=== PATIENT | female | born 1970 | race Caucasian/White ===

== ENCOUNTER 2016-11-21 12:12 | Emergency (ER) | payer MEDICAID ==
[2016-11-21 12:19] VITALS: RESP 16
[2016-11-21] MEDS ORDERED: NS 1,000 ML IV ONE (12:55)
[2016-11-21] MEDS ORDERED: ONDANSETRON 4 MG/2 ML VIAL IVP ONE ×2 (12:55→16:23)
--- NOTE | 2016-11-21 13:00 | EDPHY ---
H & P Stated Complaint: pt c/o fatigue . lymph node pain and swelling. st. - Personal History LMP (Females 10-55): IUD In Place Current Tetanus/Diphtheria Vaccine: Unsure Current Tetanus Diphtheria and Acellular Pertussis (TDAP): Unsure - Medical/Surgical History Hx Asthma: No Hx Chronic Respiratory Disease: No Hx Diabetes: No Hx Cardiac Disease: No Hx Renal Disease: No Hx Cirrhosis: No Hx Alcoholism: No Hx HIV/AIDS: No Hx Splenectomy or Spleen Trauma: No Other PMH: auto immune hepatitis /on transplant list - Social History Smoking Status: Never smoked Time Seen by Provider: 11/21/16 12:27 HPI/ROS: CHIEF COMPLAINT: "I think I have a peritonsillar abscess" HISTORY OF PRESENT ILLNESS: 46-year-old female past medical history significant for Sjogren syndrome, thrombocytopenia, autoimmune hepatitis, lupus , complaining of 10 days of sore throat, hoarse voice, seen at [facility] yesterday for same complaints had chest x-ray negative for pneumonia, discharged. This morning noticed a black area on her right tonsil concerning for peritonsillar abscess and came to the [facility] ER. Denies acute change in voice. Denies nuchal rigidity. Denies fever chills. Denies nausea or vomiting. Denies cough. Denies chest pain. Denies back pain. REVIEW OF SYSTEMS: A ten point review of systems was performed and is negative with the exception of the items mentioned in the HPI PAST MEDICAL & SURGICAL HISTORY: Sjogren syndrome. Thrombocytopenia. Autoimmune hepatitis. Lupus. Currently on transplant list [facility]. Not currently on immune suppressants. SOCIAL HISTORY: Nonsmoker PHYSICAL EXAM (Prior to examination, patient consented to physical exam, hands were washed and my usual and customary physical exam procedures followed) 1) GENERAL: Well-developed, well-nourished, alert and oriented. Appears uncomfortable . 2) HEAD: Normocephalic, atraumatic 3) HEENT: Pupils equal, round, reactive to light bilaterally. Sclera anicteric. Nasopharynx clear. Oropharynx: No trismus no drooling. Bilateral tonsils are enlarged, they are symmetrical. There is a black appearance and a crypt to the right tonsil. Ears bilaterally with normal tympanic membranes. 4) NECK: Full range of motion, no meningeal signs. 5) LUNGS: Clear auscultation bilaterally, no wheezes, no rhonchi, no retractions. 6) HEART: Regular rate and rhythm, no murmur, no heave, no gallop. 7) ABDOMEN: No guarding, no rebound, no focal tenderness, 8) MUSCULOSKELETAL: No peripheral edema or discoloration. 9) BACK: No CVA tenderness. 10) SKIN: no petechiae. DIFFERENTIAL DIAGNOSIS: in no particular order including but not limited to retropharyngeal abscess, peritonsillar abscess, strep pharyngitis, mononucleosis (Charles Turner) Constitutional: Initial Vital Signs Temperature (C) 36.8 C 11/21/16 12:17 Heart Rate 88 11/21/16 12:17 Respiratory Rate 16 11/21/16 12:17 Blood Pressure 108/68 11/21/16 12:17 O2 Sat (%) 96 11/21/16 12:17 O2 Delivery Mode Room Air O2 (L/minute) 5 Allergies/Adverse Reactions: codeine Allergy (Verified 11/21/16 12:20) Home Medications: Medication Instructions Recorded Acyclovir 400 mg PO 05/27/13 Budesonide, Micronized [Budesonide] 5 gm MC 05/27/13 CEVIMELINE HCL [EVOXAC] 30 mg PO 05/27/13 Hydroxychloroquine Sulfate 200 mg PO 05/27/13 [Plaquenil] LEVOTHYROXINE SODIUM [Levoxyl 137 225 mcg PO 05/27/13 mcg] Mycophenolate Mofetil [Cellcept 250 mg PO BID 05/27/13 250 mg (RX)] Nadolol [Nadolol 20 mg (RX)] 20 mg PO DAILY 05/27/13 HYDROmorphone HCL [Dilaudid 2 mg 1 - 2 mg PO Q4-6PRN PRN #10 tab 05/28/13 (RX)] Amoxicillin/Clavulanate Pot 875 mg PO BID #14 tab 11/21/16 [Augmentin 875 mg tab] HYDROmorphone HCL [Dilaudid 2 mg 2 mg PO Q6 PRN #15 tab 11/21/16 (RX)] Lidocaine 2% Viscous 15 ml MM TID #100 ml 11/21/16 Ondansetron Odt [Zofran Odt] 4 mg PO Q4PRN PRN #15 tab 11/21/16 methylPREDNISolone [Medrol Dose 4 mg PO DAILY #1 ea 11/21/16 Tj] Medical Decision Making - Diagnostics Imaging: CT Scan of the Neck With Contrast Clinical Indications: Sore throat for 10 days in a 46-year-old female with a history of Sjogren's syndrome and lupus with abnormal appearance of the right tonsil on physical examination; assess for abscess. Technique: During machine power IV injection of 90 mL of Isovue-300, multidetector helical CT imaging was performed from the skull base to the upper thoracic inlet. Dose reduction techniques were utilized. Findings: In the region of the right tonsillar fossa there is a 2 x 1 cm abnormal fluid collection. This contains several air bubbles in the appearance is consistent with peritonsillar abscess. There is mild compression on the adjacent airway on the right side. There is no associated osseous abnormality is seen. No significantly enlarged lymph nodes are seen. Vascular structures appear normal. There is reversal of the normal spinal cervical curvature suggesting muscle spasm. Cervical spinal degenerative changes are also noted. Impression: 1. Right peritonsillar abscess with mild compression on the adjacent airway. 2. See above report for additional findings. Results called and discussed with Alfonzo Turner at 11/21/2016 15:43 Dictated By: Ramin Lazaro MD Images reviewed by myself (Charles Turner) ED Course/Re-evaluation: 1:00 p.m.: Discussed case with Dr. Michael Collier in the ER. Reviewed old medical records from [facility] with. Will obtain laboratory studies, imaging. 2:30 p.m.: I reviewed the patient's laboratory studies from today showing H&H of 8.5/27.9 with platelet count of 49. I reviewed the patient's [facility] CBC dated 10/13/2016 showing H&H of 9.8/31.8 platelet count 112. I have discussed this with the patient she notes that she is already being evaluated for thrombocytopenia, anemia at [facility]. 3:50 p.m.: Phone consultation with Dr. Nicole Arroyo ENT recommended starting patient on Augmentin. Patient given dose of IV Decadron in the ER. Discharged with Solu-Medrol. Given the small size of the peritonsillar abscess and her thrombocytopenia, platelet count 45, I do not think that the benefits of emergent incision and drainage outweigh the risks. Dr. Nicole Arroyo agrees with this. Patient's airway is patent at this time. She has no trismus or drooling. I think she can be discharged. The patient feels comfortable with this plan. She will see Dr. Nicole Arroyo tomorrow. (Charles Turner) I did not see this patient while she was in the emergency department. However her care was discussed with the PA while the patient was in the department. I agree with treatment plan and management (Michael Collier) - Data Points Laboratory Results: Laboratory Results 11/21/16 13:25 11/21/16 13:25 11/21/16 Unknown Group A Strep DNA NEGATIVE (NEGATIVE) Medications Given: Discontinued Medications Amoxicillin/Clavulanate Potassium (Augmentin 875mg) 875 mg PO EDNOW ONE PRN Reason: Protocol Stop: 11/21/16 15:53 Last Admin: 11/21/16 16:12 Dose: 875 mg Dexamethasone (Decadron Injection) 10 mg IVP EDNOW ONE Stop: 11/21/16 15:44 Last Admin: 11/21/16 16:13 Dose: 10 mg Fentanyl (Sublimaze) 100 mcg IVP EDNOW ONE Stop: 11/21/16 14:29 Last Admin: 11/21/16 14:40 Dose: 100 mcg Fentanyl (Sublimaze) 50 mcg IVP EDNOW ONE Stop: 11/21/16 16:24 Last Admin: 11/21/16 16:32 Dose: 50 mcg Sodium Chloride (Ns) 1,000 mls @ 0 mls/hr IV ONCE ONE PRN Reason: Wide Open Stop: 11/21/16 12:56 Last Admin: 11/21/16 13:25 Dose: 1,000 mls Morphine Sulfate (Morphine) 4 mg IVP EDNOW ONE Stop: 11/21/16 12:56 Last Admin: 11/21/16 13:30 Dose: 4 mg Ondansetron HCl (Zofran) 4 mg IVP EDNOW ONE Stop: 11/21/16 12:56 Last Admin: 11/21/16 13:30 Dose: 4 mg Ondansetron HCl (Zofran) 4 mg IVP EDNOW ONE Stop: 11/21/16 16:24 Last Admin: 11/21/16 16:32 Dose: 4 mg Departure - Departure Disposition: Home, Routine, Self-Care Clinical Impression: Right peritonsillar abscess Condition: Good Instructions: Peritonsillar Abscess (ED) Additional Instructions: Return to the ER immediately if you cannot swallow, have drooling, fevers, neck stiffness, cannot open your jaw, or any other symptoms that concern you. Referrals: Nicole Arroyo MD [Medical Doctor] - 1 day without fail (Dr. Nicole Arroyo is an ear nose throat doctor) Prescriptions: Amoxicillin/Clavulanate Pot [Augmentin 875 mg tab] 875 mg PO BID #14 tab HYDROmorphone HCL [Dilaudid 2 mg (RX)] 2 mg PO Q6 PRN #15 tab PRN Reason: Pain, Severe Lidocaine 2% Viscous 15 ml MM TID #100 ml methylPREDNISolone [Medrol Dose Tj] 4 mg PO DAILY #1 ea Ondansetron Odt [Zofran Odt] 4 mg PO Q4PRN PRN #15 tab PRN Reason: Nausea
[2016-11-21] MEDS ORDERED: IOPAMIDOL (ISOVUE-300) 100 ML BTL IV ONE (13:21)
[2016-11-21 13:47] LABS: % IMMATURE GRANULYOCYTES 0.4 % (0.0-1.1); ABSOLUTE IMMATURE GRANULOCYTES 0.01 10^3/uL (0.00-0.10); ADD DIFF? NO; ADD MORPH? NO; ADD SCAN? YES; FRAGMENT RBC FLAG 0 (0-99); HEMATOCRIT 27.9 % (38.0-47.0); HEMOGLOBIN 8.5 g/dL (12.6-16.3); LEFT SHIFT FLG 40 (0-99); LIPEMIA HEMOLYSIS FLAG 80 (0-99); MEAN CELL HEMOGLOBIN 22.7 pg (27.9-34.1); MEAN CELL HEMOGLOBIN CONCENTR. 30.5 g/dL (32.4-36.7); MEAN CELL VOLUME 74.6 fL (81.5-99.8); MEAN PLATELET VOLUME 10.4 fL (8.7-11.7); PLATELET CLUMPS FLAG 10 (0-99); RED BLOOD CELL COUNT 3.74 10^6/uL (4.18-5.33); RED CELL DISTRIBUTION WIDTH 16.5 % (11.5-15.2)
[2016-11-21 13:48] LABS: ATYPICAL LYMPHOCYTE FLAG 250 (0-99); PLATELET COUNT 49 10^3/uL (150-400)
[2016-11-21 14:07] LABS: SCAN POSITIVE
[2016-11-21 14:13] LABS: HYPOCHROMIA 1+; MICROCYTES 2+; PLATELET ESTIMATE DECREASED (ADEQ); POLYCHROMASIA 1+
[2016-11-21 14:14] LABS: ELLIPTOCYTES 1+; LARGE PLATELETS PRESENT
[2016-11-21] MEDS ORDERED: fentaNYL 100 MCG/2 ML INJ IVP ONE ×2 (14:28→16:23)
[2016-11-21 14:41] LABS: ANION GAP 10 mEq/L (8-16); CALCIUM 8.2 mg/dL (8.5-10.4); CARBON DIOXIDE 21 mEq/l (22-31); CHLORIDE 105 mEq/L (97-110); CREATININE 0.8 mg/dL (0.6-1.0); GLOMERULAR FILTRATION RATE > 60; GLUCOSE 127 mg/dL (70-100); POTASSIUM 3.6 mEq/L (3.5-5.2); SODIUM 136 mEq/L (134-144)
[2016-11-21] MEDS ORDERED: DEXAMETHASONE 10 MG/ML VIAL IVP ONE (15:43)
[2016-11-21] MEDS ORDERED: AMOXICILLIN/CLAVULANATE POT 875/125 MG TAB PO ONE (15:52)
[2016-11-21] MEDS ORDERED: fentaNYL 100 MCG/2 ML INJ ONE (16:24)
[2016-11-21 18:48] VITALS: BP 99/59; PULSE 85; TEMP 98.1; O2SAT 95
== END 2016-11-21 18:48 | disposition home or self-care (01) ==
DX: J36 Peritonsillar abscess (principal)
CPT/HCPCS: 96374; J2405; J3010; Q9967

== ENCOUNTER 2017-02-14 10:13 | Emergency (ER) | payer MEDICAID ==
[2017-02-14 10:31] VITALS: RESP 16; TEMP 97.7; O2SAT 98
--- NOTE | 2017-02-14 11:44 | EDPHY ---
H & P Stated Complaint: fell on hand tripping going up stairs. - Personal History LMP (Females 10-55): IUD [address] Current Tetanus/Diphtheria Vaccine: Yes Current Tetanus Diphtheria and Acellular Pertussis (TDAP): Yes - Medical/Surgical History Hx Asthma: No Hx Chronic Respiratory Disease: No Hx Diabetes: No Hx Cardiac Disease: No Hx Renal Disease: No Hx Cirrhosis: No Hx Alcoholism: No Hx HIV/AIDS: No Hx Splenectomy or Spleen Trauma: No Other PMH: auto immune hepatitis /on transplant list, lupus, factor 5, - Social History Smoking Status: Never smoked Time Seen by Provider: 02/14/17 10:57 HPI/ROS: Chief complaint: Hand injury History of present illness: 46-year-old female presents to the emergency department for hand injury. Patient tripped and fell striking her hand against the ground. Since then she has had pain and swelling over the top of her hand. Pain is worse with movement. Denies other associated signs or symptoms including no open wounds, no abnormal coolness or paresthesias in the hand. ( Ramin Freeman) - Physical Exam Exam: General: Alert, nontoxic Skin: Contusion over the dorsum of the right hand. No open wounds. Musculoskeletal: Diffuse tenderness over the dorsum of the right hand. The digits are nontender. The wrist including the snuffbox is nontender. She is moving the digits and wrist well. Vascular: Radial pulses 2+. Capillary refill brisk in the right hand. Neurologic: Sensation intact in the right hand. (Ramin Freeman) Constitutional: Initial Vital Signs Temperature (C) 36.5 C 02/14/17 10:28 Heart Rate 101 H 02/14/17 10:28 Respiratory Rate 16 02/14/17 10:28 Blood Pressure 112/63 02/14/17 10:28 O2 Sat (%) 98 02/14/17 10:28 O2 Delivery Mode Room Air Allergies/Adverse Reactions: codeine Allergy (Verified 11/21/16 12:20) Home Medications: Medication Instructions Recorded Acyclovir 400 mg PO 05/27/13 Budesonide, Micronized [Budesonide] 5 gm MC 05/27/13 CEVIMELINE HCL [EVOXAC] 30 mg PO 05/27/13 Hydroxychloroquine Sulfate 200 mg PO 05/27/13 [Plaquenil] LEVOTHYROXINE SODIUM [Levoxyl 137 225 mcg PO 05/27/13 mcg] Mycophenolate Mofetil [Cellcept 250 mg PO BID 05/27/13 250 mg (RX)] Nadolol [Nadolol 20 mg (RX)] 20 mg PO DAILY 05/27/13 HYDROmorphone HCL [Dilaudid 2 mg 1 - 2 mg PO Q4-6PRN PRN #10 tab 05/28/13 (RX)] Amoxicillin/Clavulanate Pot 875 mg PO BID #14 tab 11/21/16 [Augmentin 875 mg tab] HYDROmorphone HCL [Dilaudid 2 mg 2 mg PO Q6 PRN #15 tab 11/21/16 (RX)] Lidocaine 2% Viscous 15 ml MM TID #100 ml 11/21/16 Ondansetron Odt [Zofran Odt] 4 mg PO Q4PRN PRN #15 tab 11/21/16 methylPREDNISolone [Medrol Dose 4 mg PO DAILY #1 ea 11/21/16 Tj] Medical Decision Making - Diagnostics Imaging: I viewed and interpreted images myself Procedures: Procedure: Splint placement. A volar splint was applied. After application of the splint I returned and re- examined the patient. The splint was adequately immobilizing the joint and distal to the splint the patient's circulation and sensation was intact. (Ramin Freeman) ED Course/Re-evaluation: Patient seen under the supervision of my secondary supervising physician Dr. Montse Albrecht. Patient presents to the emergency department for right hand injury. The hand is neurovascularly intact. X-ray negative. By history and physical exam no evidence of further trauma. She is splinted for comfort. Home care is discussed. She is asked to follow up with her doctor or hand doctor for recheck. Return precautions are given. Patient voiced understanding and agreement with plan. (Ramin Freeman) Differential Diagnosis: Included but not limited to contusion, sprain or strain, bony fracture (Ramin Freeman) Other Provider: This patient was primarily cared by the physician assistant operator. I have reviewed the chart and agree with the plan of care. I am the secondary supervising physician. (Montse Albrecht) Departure - Departure Disposition: Home, Routine, Self-Care Clinical Impression: Contusion, hand Condition: Good Instructions: Contusion in Adults (ED) Additional Instructions: Follow-up with her primary care doctor or hand doctor this week for recheck Ice the injury, 20 minutes on, 3 times daily for the next 2-3 days Ibuprofen as needed for pain If symptoms worsen or new symptoms develop return to the emergency room for recheck Referrals: Lindy Hernandez MD [Primary Care Provider] - As per Instructions Roshan Killian MD [Medical Doctor] - As per Instructions
[2017-02-14 12:19] VITALS: BP 135/86; PULSE 78
== END 2017-02-14 12:20 | disposition home or self-care (01) ==
DX: S60.221A Contusion of right hand, initial encounter (principal); W01.198A Fall on same level from slipping, tripping and stumbling with subsequent striking against other object, initial encounter

== ENCOUNTER 2018-12-23 23:00 | Inpatient (IN) | payer MEDICAID ==
[2018-12-23] MEDS ORDERED: NS 1,000 ML IV ONE ×2 (23:25→23:47)
--- NOTE | 2018-12-23 23:25 | EDPHY ---
H & P Stated Complaint: body aches, and abd pain since 1200 ascites Time Seen by Provider: 12/23/18 23:25 HPI/ROS: HPI CHIEF COMPLAINT: Fever and abdominal pain. HISTORY OF PRESENT ILLNESS: Patient is a 48-year-old female, she presents emergency room with fever, abdominal pain. She has a history of autoimmune hepatitis, Sjogren's, vitiligo, and also has ascites, she presents emergency room with abdominal pain and fever. She has nausea but no vomiting. Denies chest pain or shortness of breath. Does have a cough. Complains of muscle aches. MELD SCORE 24 Past Medical History: Autoimmune hepatitis, Sjogren's disease, vitiligo Past Surgical History: Denies recent surgery Social History: Denies drugs alcohol tobacco Family History: Noncontributory Patient is followed by [facility]. She is on the transplant list. ROS REVIEW OF SYSTEMS: 10 Systems were reviewed and negative with the exception of the elements mentioned in the history of present illness. Exam Constitutional triage nursing summary reviewed, vital signs reviewed, awake/ alert. Eyes icteric sclera EOMI, PERRLA. HENT normal inspection, atraumatic, moist mucus membranes, no epistaxis, neck supple/ no meningismus, no raccoon eyes. Respiratory clear to auscultation bilaterally, normal breath sounds, no respiratory distress, no wheezing. Cardiovascular rate normal, regular rhythm, no murmur, no edema, distal pulses normal. Gastrointestinal abdomen is soft however tender diffusely, fluid wave positive. No significant distention. Genitourinary no CVA tenderness. Musculoskeletal no midline vertebral tenderness, full range of motion, no calf swelling, no tenderness of extremities, no meningismus, good pulses, neurovascularly intact. Skin pink, warm, & dry, no rash, skin atraumatic. Neurologic awake, alert and oriented x 3, AAOx3, moves all 4 extremities equally, motor intact, sensory intact, CN II-XII intact, normal cerebellar, normal vision, normal speech. Psychiatric normal mood/affect. Heme/Lymph/Immune no lymphadenopathy. Differential Diagnosis: Differential diagnosis includes but is not limited to and in no particular order: Bowel obstruction, appendicitis, gallbladder disease, diverticulitis, colitis, enteritis, perforated viscus, gastritis, GERD , esophagitis, urinary tract infection, pyelonephritis, kidney stones Medical Decision Making: Plan for this patient IV establishment IV fluid bolus , IV pain medicine Dilaudid 0.5 mg for pain control, IV Zofran 4 mg for nausea, Rocephin, blood cultures, lactic acid, basic labs. Re-evaluate. Re-evaluation: 12:11 a.m. patient here with fever, abdominal pain and ascites on exam. Icteric eyes. Labs have been reviewed she does have an elevated white blood cell count. Additionally low platelets, elevated LFTs, bilirubin is close to 8. Is concerning on exam that she may have SBP. IV Rocephin has been given. Blood cultures pulled. Lactic acid was initially elevated at 5.1. I do not believe this is a marker of septic shock as she does not appear to be in shock however this is more of a marker due to underlying liver disease. She is getting IV fluids. Will repeat lactic. 1227AM: Spoke with [facility] Dr. Sigala on-call for the liver team discussed case in detail. She is fine with us keeping her here. She does not recommend transfer [facility] this time MELD Score (Model For End-Stage Liver Disease) (12 and older) from [email or web address] on 12/24/2018 All calculations should be rechecked by clinician prior to use RESULT SUMMARY: 24 points MELD Score (2016)* 19.6% Estimated 3-Month Mortality INPUTS: Dialysis at least twice in the past week > 0 = No Creatinine > 0.7 mg/dL Bilirubin > 8.0 mg/dL INR > 1.91 Sodium > 134 mEq/L 1233: Updated patient she does not prefer to be transferred and prefers to be here. Spoke with Dr. Rios, Agrees to admit. Patient agrees to admit here, would prefer here then being transferred. [facility] consulted and agrees for her to stay here Dr. Sigala. Source: Patient - Personal History LMP (Females 10-55): IUD In Place Current Tetanus/Diphtheria Vaccine: No Current Tetanus Diphtheria and Acellular Pertussis (TDAP): No - Medical/Surgical History Hx Asthma: No Hx Chronic Respiratory Disease: No Hx Diabetes: No Hx Cardiac Disease: No Hx Renal Disease: No Hx Cirrhosis: Yes Hx Alcoholism: No Hx HIV/AIDS: No Hx Splenectomy or Spleen Trauma: No Other PMH: raynaud's, auto immune hepatitis /on transplant list, lupus, factor 5 , ascites, hypothyriodism, - Social History Smoking Status: Never smoked Constitutional: Initial Vital Signs Temperature (C) 37.1 C 12/23/18 23:05 Heart Rate 123 H 12/23/18 23:05 Respiratory Rate 16 12/23/18 23:05 Blood Pressure 110/61 12/23/18 23:05 O2 Sat (%) 96 12/23/18 23:05 O2 Delivery Mode Room Air Allergies/Adverse Reactions: codeine Allergy (Verified 12/23/18 23:08) narcotics Allergy (Uncoded 12/23/18 23:09) Home Medications: Medication Instructions Recorded Acyclovir [Zovirax 200 mg (*)] 200 mg PO BID 12/24/18 Cevimeline HCl [Evoxac] 30 mg PO TID PRN 12/24/18 Cholecalciferol Vit D3 [Vitamin D3 2,000 units PO DAILY 12/24/18 (*)] Ciprofloxacin HCl [Ciprofloxacin] 500 mg PO DAILY PRN 12/24/18 Furosemide [Lasix 40 MG (*)] 40 mg PO BID@,12/24/18 Herbals/Supplements -Info Only 1 ea PO DAILY 12/24/18 Levothyroxine [Synthroid 200 mcg 200 mcg PO DAILY06 12/24/18 (*)] Lisdexamfetamine Dimesylate 70 mg PO DAILY 12/24/18 [Vyvanse] Spironolactone [Aldactone 50 MG 100 mg PO BID@,12/24/18 (RX)] Medical Decision Making - Diagnostics Imaging Results: Imaging Impressions Chest X-Ray 12/23/18 23:34 Impression: Normal chest x-ray. - Data Points Laboratory Results: Laboratory Results 12/23/18 23:31 12/23/18 23:31 Medications Given: Acetaminophen (Tylenol) 650 mg PO Q4HRS PRN PRN Reason: Pain, Mild/Fever, Can Take PO Stop: 06/22/19 00:39 Last Admin: 12/24/18 19:22 Dose: 650 mg Hydromorphone HCl (Dilaudid) 0.5 mg IVP Q4HRS PRN PRN Reason: Severe pain Stop: 01/03/19 02:12 Last Admin: 12/24/18 19:58 Dose: 0.5 mg Discontinued Medications Hydromorphone HCl (Dilaudid) 0.5 mg IVP EDNOW ONE Stop: 12/23/18 23:33 Last Admin: 12/23/18 23:46 Dose: 0.5 mg Sodium Chloride (Ns) 1,000 mls @ 0 mls/hr IV EDNOW ONE; Wide Open PRN Reason: Protocol Stop: 12/23/18 23:26 Last Admin: 12/23/18 23:42 Dose: 1,000 mls Ceftriaxone Sodium 2 gm/ (Sodium Chloride) 50 mls @ 100 mls/hr IV EDNOW ONE PRN Reason: Protocol Stop: 12/24/18 00:03 Last Admin: 12/24/18 00:15 Dose: 50 mls Sodium Chloride (Ns) 1,000 mls @ 0 mls/hr IV ONCE ONE PRN Reason: Wide Open Stop: 12/23/18 23:48 Last Admin: 12/23/18 23:48 Dose: 1,000 mls Phytonadione 10 mg/ Sodium (Chloride) 51 mls @ 204 mls/hr IV ONCE ONE Stop: 12/24/18 00:58 Last Admin: 12/24/18 01:09 Dose: 51 mls Sodium Chloride (Ns) 500 mls @ 0 mls/hr IV ONCE ONE PRN Reason: Wide Open Stop: 12/24/18 02:15 Last Admin: 12/24/18 02:37 Dose: 500 mls Albumin Human (Flexbumin 25 % (Premix)) 400 mls @ 0 mls/hr IV ONCE ONE PRN Reason: As Directed Stop: 12/24/18 09:01 Last Admin: 12/24/18 10:17 Dose: 400 mls Lidocaine/Epinephrine (Lidocaine 1%-Epi 1:100,000) 0 ml IF ONCE ONE Stop: 12/24/18 09:31 Last Admin: 12/24/18 10:24 Dose: Not Given Ondansetron HCl (Zofran) 4 mg IVP EDNOW ONE Stop: 12/23/18 23:33 Last Admin: 12/23/18 23:43 Dose: 4 mg Departure - Departure Disposition: [facility] Clinical Impression: Liver disease, SBP (spontaneous bacterial peritonitis) Fever Qualifiers: Fever type: due to other condition Qualified Code(s): R50.81 - Fever presenting with conditions classified elsewhere Condition: Serious
[2018-12-23] MEDS ORDERED: ONDANSETRON 4 MG/2 ML VIAL IVP ONE (23:32)
[2018-12-23] MEDS ORDERED: HYDROmorphONE/DILAUDID 2 MG/ML INJ IVP ONE (23:32)
[2018-12-23 23:55] LABS: PLATELET COUNT 47 10^3/uL (150-400)
[2018-12-23 23:56] LABS: INR 1.91 (0.83-1.16)
[2018-12-24] MEDS ORDERED: ONDANSETRON 4 MG/2 ML VIAL IVP PRN (00:40)
[2018-12-24] MEDS ORDERED: PHYTONADIONE 10 MG in NS 50 ML IV ONE (00:44)
--- NOTE | 2018-12-24 01:17 | PDGENHP ---
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 The patient reports moderate to severe, diffuse abdominal pain starting today. She then noted a fever to 100.9 so she came in to the ED. She is followed at [facility] by ground support equipment assembler Dr. Gonzalez. She is in the process of transplant evaluation but her MELD score has not been high enough for short term consideration. Of note, she had a bout of SBP late last year. She was prescribed prophylactic ciprofloxacin after this but she has not been taking it because of side effects. She was also taken off on Nadolol at the time of her last infection. In the ED her evaluation is notable for LFTs elevated beyond her baseline and significant abdominal tenderness. She is being admitted for infectious work-up and presumed SBP. Case discussed with ED physician Dr. Salter; records reviewed and summarized above. History Information - Allergies/Home Medication List Allergies/Adverse Reactions: codeine Allergy (Verified 12/23/18 23:08) narcotics Allergy (Uncoded 12/23/18 23:09) Home Medications: Cevimeline HCl 12/23/18 [Last Taken Unknown] Cholecalciferol (Vitamin D3) 12/23/18 [Last Taken Unknown] Ciprofloxacin 12/23/18 [Last Taken Unknown] Furosemide 12/23/18 [Last Taken Unknown] Spironolactone 12/23/18 [Last Taken Unknown] Synthroid 12/23/18 [Last Taken Unknown] Vyvanse 12/23/18 [Last Taken Unknown] Zovirax 12/23/18 [Last Taken Unknown] I have personally reviewed and updated: family history, medical history - Past Medical History Additional medical history: 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 Sjogren's syndrome - Surgical History Additional surgical history: x4 - Family History Additional family history: Denies family hx of liver disease - Social History Smoking Status: Never smoked Review of Systems Review of Systems: ROS: 10pt was reviewed & negative except for what was stated in HPI & below Physical Exam Physical Exam: Temp Pulse Resp BP Pulse Ox 36.7 C 116 H 18 107/56 L 97 12/23/18 23:47 12/23/18 23:47 12/23/18 23:47 12/23/18 23:47 12/23/18 23:47 Constitutional: chronically ill appearing, uncomfortable Eyes: PERRL, icteric sclera Ears, Nose, Mouth, Throat: moist mucous membranes, no oral mucosal ulcers Cardiovascular: regular rate and rhythym, no murmur, rub, or gallop Respiratory: no respiratory distress, clear to auscultation Gastrointestinal: normoactive bowel sounds, tenderness (Diffuse), ascites, guarding, distension Skin: warm, other (Icteric) Musculoskeletal: full muscle strength, no muscle tenderness Neurologic: AAOx3, CN II-XII Intact Psychiatric: interacting appropriately, not anxious Lab Data & Imaging Review 12/23/18 23:31 12/23/18 23:31 WBC 10.44 10^3/uL (3.80-9.50) H 12/23/18 23: RBC 3.64 10^6/uL (4.18-5.33) L 12/23/18 23:31 Hgb 12.6 g/dL (12.6-16.3) 12/23/18 23: Hct 36.6 % (38.0-47.0) L 12/23/18 23: MCV 100.5 fL (81.5-99.8) H 12/23/18 23: MCH 34.6 pg (27.9-34.1) H 12/23/18 23: MCHC 34.4 g/dL (32.4-36.7) 12/23/18 23:31 RDW 15.1 % (11.5-15.2) 12/23/18 23: Plt Count 47 10^3/uL (150-400) L 12/23/18 23: MPV 9.7 fL (8.7-11.7) 12/23/18 23:31 Neut % (Auto) 93.9 % (39.3-74.2) H 12/23/18 23:31 Lymph % (Auto) 3.5 % (15.0-45.0) L 12/23/18 23:31 [place] % (Auto) 2.0 % (4.5-13.0) L 12/23/18 23:31 Eos % (Auto) 0.0 % (0.6-7.6) L 12/23/18 23: Baso % (Auto) 0.2 % (0.3-1.7) L 12/23/18 23: Nucleat RBC Rel Count 0.0 % (0.0-0.2) 12/23/18 23: Absolute Neuts (auto) 9.80 10^3/uL (1.70-6.50) H 12/23/18 23: Absolute Lymphs (auto) 0.37 10^3/uL (1.00-3.00) L 12/23/18 23: Absolute Monos (auto) 0.21 10^3/uL (0.30-0.80) L 12/23/18 23: Absolute Eos (auto) 0.00 10^3/uL (0.03-0.40) L 12/23/18 23: Absolute Basos (auto) 0.02 10^3/uL (0.02-0.10) 12/23/18 23: Absolute Nucleated RBC 0.00 10^3/uL (0-0.01) 12/23/18 23: Immature Gran % 0.4 % (0.0-1.1) 12/23/18 23: Immature Gran # 0.04 10^3/uL (0.00-0.10) 12/23/18 23: RBC/WBC/PLT Morphology TNP 12/23/18 23: Platelet Estimate DECREASED (ADEQ) L 12/23/18 23: PT 21.0 SEC (12.0-15.0) H 12/23/18 23: INR 1.91 (0.83-1.16) H 12/23/18 23: APTT 35.9 SEC (23.0-38.0) 12/23/18 23: VBG Lactic Acid 3.1 mmol/L (0.7-2.1) H 12/24/18 00:35 Sodium 134 mEq/L (135-145) L 12/23/18 23: Potassium 3.4 mEq/L (3.5-5.2) L 12/23/18 23: Chloride 104 mEq/L (97-110) 12/23/18 23: Carbon Dioxide 18 mEq/l (22-31) L 12/23/18 23: Anion Gap 12 mEq/L (6-14) 12/23/18 23:31 BUN 13 mg/dL (7-23) 12/23/18 23:31 Creatinine 0.9 mg/dL (0.6-1.0) 12/23/18 23:31 Estimated GFR > 60 12/23/18 23:31 Glucose 201 mg/dL (70-100) H 12/23/18 23:31 Calcium 8.2 mg/dL (8.5-10.4) L 12/23/18 23:31 Total Bilirubin 8.0 mg/dL (0.1-1.4) H 12/23/18 23:31 Conjugated Bilirubin 3.7 mg/dL (0.0-0.5) H 12/23/18 23:31 Unconjugated Bilirubin 4.3 mg/dL (0.0-1.1) H 12/23/18 23:31 AST 80 IU/L (14-46) H 12/23/18 23:31 ALT 97 IU/L (9-52) H 12/23/18 23:31 Alkaline Phosphatase 162 IU/L (38-126) H 12/23/18 23:31 Total Protein 6.4 g/dL (6.3-8.2) 12/23/18 23:31 Albumin 2.9 g/dL (3.5-5.0) L 12/23/18 23:31 Lipase 528 IU/L (23-300) H 12/23/18 23:31 Beta HCG, Qual NEGATIVE 12/23/18 23:31 Assessment & Plan Assessment: 48 yo F w/ cirrhosis presents with fever and abdominal pain possibly due to SBP. Plan: 1. Fever, abdominal pain - Presumably due to recurrent SBP; she last had a bout of SBP late in 2018 treated at [facility]. She was prescribed prophylactic ciprofloxacin at that time but has not been taking it. Her LFTs are elevated above her baseline. - Blood and urine cultures obtained - CTX 2g qD for presumed SBP - Paracentesis ordered per IR 2. Cirrhosis with acute decompensation - Cirrhosis due to autoimmune hepatitis; decompensation likely due to SBP as above. Her baseline MELD-Na score is 12-14, increased to MELD-Na 24 on admission. - Infectious management as above - RUQ U/S with dopplers ordered - Monitor daily CMP, INR - Hold home diuretics in setting of acute illness, resume as indicated 3. Thrombocytopenia - 2/2 cirrhosis. - Monitor CBC 4. Coagulopathy - 2/2 liver dysfunction. - Vitamin K x1 noting need for paracentesis - Monitor INR 5. Hypothyroid- Continue LTX Diet - NPO pending paracentesis Code - Full Ppx - SCDs Dispo - Admit under observation status
[2018-12-24] MEDS ORDERED: NS 500 ML IV ONE (02:14)
[2018-12-24] MEDS: HYDROmorphONE/DILAUDID 1 MG/ML INJ IVP PRN ×6 (02:35→23:53)
[2018-12-24 05:27] LABS: INR 2.34 (0.83-1.16); PROTIME(PATIENT) 24.5 SEC (12.0-15.0)
[2018-12-24 05:51] LABS: PLATELET COUNT 43 10^3/uL (150-400)
[2018-12-24] MEDS ORDERED: ALBUMIN 25% 400 ML IV ONE (09:00)
[2018-12-24] MEDS ORDERED: LIDO/EPI 1% **Not for Epidural 20 ML MDV IF ONE (09:30)
--- NOTE | 2018-12-24 10:48 | HOSPPROG ---
Hospitalist Progress Note Assessment/Plan: #Sepsis: leukocytosis, tachy, lactic acidosis -treating for SBP #Suspected SBP: not enough ascites to tap; risk higher than benefit -IV CTX, albumin (repeat Tues) -doesn't tolerate ppx cipro due thrush. 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 Telemetry #Hypothyroidism: home meds #DVT ppx: SCDs #Disp: inpatient admission for IV abx and pain control Direct care time spent 30 min: [facility], evaluating pt and d/w ICU team and mother (10:15-10:45) Subjective: diffuse abd pain. Can't tolerate cipro due to thrush. Having BMs Objective: Vital Signs Temp Pulse Resp BP Pulse Ox 37.2 C 120 H 21 H 91/49 L 93 12/24/18 04:00 12/24/18 04:00 12/24/18 04:00 12/24/18 04:00 12/24/18 04:00 Laboratory Results 12/24/18 05:00 12/24/18 05:00 12/23/18 12/24/18 12/25/18 05:59 05:59 05:59 Intake Total 2525 Balance 2525 PT 24.5 SEC (12.0-15.0) H 12/24/18 05:00 INR 2.34 (0.83-1.16) H 12/24/18 05:00 - Time Spent With Patient Time Spent with Patient: greater than 25 minutes Time Spent with Patient: Greater than 25 minutes spent on this patients care, greater than 50% of time spent counseling, educating, and coordinating care regarding the above mentioned plan. - Physical Exam Constitutional: chronically ill appearing, uncomfortable Ears, Nose, Mouth, Throat: moist mucous membranes Cardiovascular: tachycardia Respiratory: no respiratory distress Gastrointestinal: tenderness (diffuse, no rebound/guarding), distension Genitourinary: No curtis in urethra Skin: warm Musculoskeletal: full muscle strength Neurologic: AAOx3, CN II-XII Intact Psychiatric: interacting appropriately ICD10 Worksheet Patient Problems: Problems Problem Status Onset Fever Acute Liver disease Acute SBP (spontaneous bacterial peritonitis) Acute
--- NOTE | 2018-12-24 11:29 | PDCONSULT ---
Manager Assurance Note: ASSESSMENT 48 yo F with decompensated cirrhosis due to to autoimmune hepatitis and SBP in the setting of medication non adherence # Spontaneous Bacterial Peritonitis. Has not been taking cipro prophylaxis as OP due to perceived intolerance. Bedside U/S with significant bowel wall edema but minimal ascites thus paracentesis not performed. CXR clear, UA negative. # decompensated cirrhosis. due to above. Followed at and on inactive transplant list # autoimmune hepatitis. previously on mycophenolate but patient self discontinued. # hepatic encephalopathy # sepsis. due to above # sinus tachycardia. Compensatory due to infection and inflammatory response # anemia, thrombocytopenia of liver disease # coagulopathy # hypothyroidism PLAN # empiric SBP treatment with ceftriaxone # 25% albumin 1.5 g/kg on day 1 then again 1 g/kg on day 3 for SBP # will need to trial other secondary SBP ppx # holding diuretics given sepsis # declines lactulose # Feeding - reg diet # txfs to keep plts >10, Hgb>7 # Analgesia oxy # Sedation low dose trazodone # Thromboprophylaxis - hold unless plts >50. # Head of bed elevated # Ulcer prophylaxis - ppi # Glucose no hyperglycemia # Skin no skin breakdown # Delirium - delirium precautions ABX CTX 12/23-present EVENTS 12/23/18 admission CX Data IMAGING I reviewed radiographic images well as formal radiology reads 12/24/2018 bedside abdominal ultrasound without significant ascites and no pocket safe for paracentesis. Significant bowel wall edema. Bowel peristalsis seen. 12/23/18 CXR normal cardiac silhouette, clear lung pineda, no focal infiltrate, osseous structures intact. Curvilinear wires over chest likely represent broad wires. CONSULT I was asked by Dr. Mendoza of Hospital Medicine to evaluate this patient for ICU care in the setting of sepsis and SBP CC abdominal pain HPI 48 year old female with advanced cirrhosis due to autoimmune hepatitis who was admitted through the emergency department for increasing abdominal pain fevers. She has a history of SBP in his post be on Cipro but has not been taking it due to perceived intolerance. She complains of moderate to severe diffuse abdominal pain that started the day prior to admission. She also noticed a fever to 100.9 on her home thermometer. She complains of malaise and nausea but no vomiting, no diarrhea no hematemesis no melanoma hematochezia. She is followed by deckhand sponge boat Dr. Gonzalez at [facility] and is inactive on the transplant list due to low meld score. She is also on a beta-oleg for primary prevention for cirrhosis but this has been stopped since her last SBP. She is found to have elevated LFTs and tender abdominal pain and started antibiotics to transfer to the ICU in the setting of tachycardia and confusion. Allergies Narcotics Medications Medication reconciliation is performed and reviewed by me. See EMR for details Past medical history Autoimmune hepatitis, cirrhosis, Sjogren's syndrome, hypothyroidism, anemia, thrombocytopenia, c section Social history For C-sections, lives in [place], nonsmoker, nondrinker Review of systems A comprehensive 10 point review of systems was obtained is negative except as per HPI EXAM vitals. reviewed and interpreted. Significant for tachycardia GEN: Resting in bed, no acute distress NEURO: Somnolent, arousable alert and oriented x3 current nerves 2 through 12 grossly intact, no significant asterixis HEENT: PERRL, EOMI, MMM, OP clear NECK: supple, trachea midline CHEST normal shape, no pes excavatum CVS: rrr no m/r/g PULM: CTA B, no wheezes/rales/rhonchi ABD: soft, NT, ND, NABS EXT: no swelling, no cyanosis, full ROM SKIN: Spider angiomas PSYCH CAM negative, odd affect LABS reviewed and interpreted.
--- NOTE | 2018-12-24 14:06 | ASMTCMCOM ---
CM Note CM Note Notes: Pt has auto-immune hepatitis. fever. Pt with cirrhosis, followed by [facility]. No therapies ordered. Pt on IV antibiotics. CM to follow pt for d/c planning. Date Signed: 12/24/2018 02:06 PM Electronically Signed By:LUZ Austin
[2018-12-24] MEDS: ACETAMINOPHEN 325 MG TAB PO PRN (19:22)
[2018-12-25] MEDS: HYDROmorphONE/DILAUDID 1 MG/ML INJ IVP PRN ×2 (03:54→08:23)
[2018-12-25 04:39] LABS: PLATELET COUNT 37 10^3/uL (150-400)
[2018-12-25 04:44] LABS: INR 2.43 (0.83-1.16); PROTIME(PATIENT) 25.2 SEC (12.0-15.0)
[2018-12-25] MEDS ORDERED: POTASSIUM CL 20 MEQ TAB PO ONE (08:01)
[2018-12-25] MEDS ORDERED: PROTOCOL MAGNESIUM 1 DOSE IV PRN (10:26)
[2018-12-25] MEDS ORDERED: PROTOCOL CALCIUM 1 DOSE IV PRN (10:26)
[2018-12-25] MEDS ORDERED: PROTOCOL POTASSIUM 1 DOSE MISC PRN (10:26)
--- NOTE | 2018-12-25 10:34 | HOSPPROG ---
Hospitalist Progress Note Assessment/Plan: #Sepsis: resolved. Due to SBP #Suspected SBP: not enough ascites to tap; risk higher than benefit -IV CTX, albumin (dose again Tu) -doesn't tolerate ppx cipro due thrush. Can trial Bactrim DS daily (close monitoring of platelets) #Abd pain: due to above. Improved #Autoimmune cirrhosis: Dr. Gonzalez is W[employer]older at [facility] -Azathioprine not tolerated due to low WBCs, MMF self-discontinued -EGD for varices due in MELD 25 today -resume diuretics #Coagulopathy: due to liver disease #Hypomagnesium/hypokalemia: replete #Thrombocytopenia: no active bleeding, due to cirrhosis #Tachycardia: due to fever, infection and pain. Resolved #Sjogren's: home mes #Hypothyroidism: home meds #DVT ppx: SCDs #Disp: inpatient admission for IV abx and pain control Subjective: less pain in abdomen Objective: Vital Signs Temp Pulse Resp BP Pulse Ox 36.7 C 97 19 98/52 L 92 12/25/18 07:56 12/25/18 07:56 12/25/18 07:56 12/25/18 07:56 12/25/18 07:56 Laboratory Results 12/25/18 04:25 12/25/18 04:25 12/24/18 12/25/18 12/26/18 05:59 05:59 05:59 Intake Total 2525 1645 Balance 2525 1645 PT 25.2 SEC (12.0-15.0) H 12/25/18 04:25 INR 2.43 (0.83-1.16) H 12/25/18 04:25 - Time Spent With Patient Time Spent with Patient: greater than 35 minutes Time Spent with Patient: Greater than 35 minutes spent on this patients care, greater than 50% of time spent counseling, educating, and coordinating care regarding the above mentioned plan. - Physical Exam Constitutional: chronically ill appearing Eyes: PERRL Ears, Nose, Mouth, Throat: moist mucous membranes Cardiovascular: regular rate and rhythym Respiratory: no respiratory distress Gastrointestinal: tenderness, distension, No guarding, No rebound Genitourinary: No curtis in urethra Skin: warm Musculoskeletal: full muscle strength Neurologic: AAOx3, CN II-XII Intact Psychiatric: interacting appropriately ICD10 Worksheet Patient Problems: Problems Problem Status Onset Fever Acute Liver disease Acute SBP (spontaneous bacterial peritonitis) Acute
[2018-12-25] MEDS ORDERED: Herbals/Supplements -Info Only PO SCH (11:00)
[2018-12-25] MEDS: Lisdexamfetamine Dimesylate [Vyvanse] 70 MG PO SCH (11:11)
[2018-12-25] MEDS: ACYCLOVIR 200 MG CAP PO SCH ×2 (11:11→22:27)
[2018-12-25] MEDS: Cevimeline Hcl [Evoxac] 30 MG PO PRN ×2 (11:11→21:28)
[2018-12-25] MEDS: SPIRONOLACTONE 50 MG TAB PO SCH ×2 (12:36→18:34)
[2018-12-25] MEDS: FUROSEMIDE 40 MG TAB PO SCH ×2 (12:37→17:07)
[2018-12-25] MEDS: CHOLECALCIFEROL VIT D3 1,000 UNITS TAB PO SCH (12:37)
[2018-12-25] MEDS: oxyCODONE IR 5 MG TAB PO PRN ×3 (12:37→21:25)
--- NOTE | 2018-12-25 14:07 | PDMN ---
Medical Necessity Medical necessity: Pt meets IP criteria as of 12/25/2018 per and LOLI M-570 ( Liver disease complications); los > 2 mn for ongoing tx and management of suspected spontaneous bacterial peritonitis in the setting of autoimmune cirrhosis; requiring IV ABX, albumin replacement, serial labs and pain control.
[2018-12-25] MEDS: MAGNESIUM OXIDE 400 MG TAB PO SCH (15:27)
[2018-12-25] MEDS ORDERED: FUROSEMIDE 40 MG TAB PO SCH (17:00)
[2018-12-25] MEDS ORDERED: SPIRONOLACTONE 50 MG TAB PO SCH (17:00)
[2018-12-25] MEDS: SPIRONOLACTONE 100 MG TAB PO SCH (17:07)
[2018-12-25] MEDS: SIMETHICONE 80 MG TAB CHEW PO SCH ×2 (19:08→21:25)
[2018-12-25] MEDS ORDERED: POTASSIUM CL 10 MEQ TAB PO ONE (19:30)
[2018-12-26] MEDS: oxyCODONE IR 5 MG TAB PO PRN ×6 (01:46→23:21)
[2018-12-26 05:48] LABS: INR 1.88 (0.83-1.16); PROTIME(PATIENT) 20.7 SEC (12.0-15.0)
[2018-12-26] MEDS: LEVOTHYROXINE 200 MCG TAB PO SCH (06:25)
[2018-12-26] MEDS: SIMETHICONE 80 MG TAB CHEW PO SCH ×4 (09:01→20:56)
[2018-12-26] MEDS: MAGNESIUM OXIDE 400 MG TAB PO SCH (09:01)
[2018-12-26] MEDS: SPIRONOLACTONE 100 MG TAB PO SCH ×2 (09:01→16:14)
[2018-12-26] MEDS: FUROSEMIDE 40 MG TAB PO SCH ×2 (09:01→16:14)
[2018-12-26] MEDS: CHOLECALCIFEROL VIT D3 1,000 UNITS TAB PO SCH (09:01)
[2018-12-26] MEDS: ACYCLOVIR 200 MG CAP PO SCH ×2 (09:01→21:52)
[2018-12-26] MEDS ORDERED: POTASSIUM CL 10 MEQ TAB PO ONE (09:09)
[2018-12-26] MEDS: Lisdexamfetamine Dimesylate [Vyvanse] 70 MG PO SCH (09:10)
[2018-12-26] MEDS ORDERED: CEVIMELINE HCL 30 MG PO SCH (10:04)
--- NOTE | 2018-12-26 10:39 | HOSPPROG ---
Hospitalist Progress Note Assessment/Plan: # likely SBP - improved - cont rocephin, D#3/5 (last dose Wed midnight) - will need ppx after - had thrush with cipro; consider bactrim DS daily but concern with cytopenias - would need close follow up # autoimmune cirrhosis - off all immunosuppressants; followed by Dr Gonzalez at - c/d varices, synthetic dysfunction, thrombocytopenia - cont lasix/aldactone # FEN - replete # Sjogrens - home Evoxac # hypothyroid - synthroid # ADHD - Vyvanse # DVT ppx - SCDs Subjective: abd pain better; less distended; eating Objective: Vital Signs Temp Pulse Resp BP Pulse Ox 37.1 C 91 18 107/60 94 12/26/18 08:13 12/26/18 08:13 12/26/18 08:13 12/26/18 08:13 12/26/18 08:13 Laboratory Results 12/26/18 04:38 12/26/18 04:38 12/25/18 12/26/18 12/27/18 05:59 05:59 05:59 Intake Total 880 Balance 880 PT 20.7 SEC (12.0-15.0) H 12/26/18 04:38 INR 1.88 (0.83-1.16) H 12/26/18 04:38 chart reviewed US reviewed - Physical Exam Constitutional: no apparent distress, appears nourished Cardiovascular: regular rate and rhythym, no murmur, rub, or gallop Respiratory: no respiratory distress, no rales or rhonchi, clear to auscultation Gastrointestinal: normoactive bowel sounds, soft, non-tender abdomen, distension (mild) ICD10 Worksheet Patient Problems: Problems Problem Status Onset Fever Acute Liver disease Acute SBP (spontaneous bacterial peritonitis) Acute
[2018-12-26] MEDS: Cevimeline Hcl [Evoxac] 30 MG PO PRN (10:42)
[2018-12-26] MEDS: CEVIMELINE 30 MG PO SCH ×3 (11:16→20:56)
[2018-12-26] MEDS: PANTOPRAZOLE SODIUM 40 MG TAB PO SCH (14:21)
[2018-12-26] MEDS ORDERED: ALBUMIN 25% IV ONE (14:30)
[2018-12-26] MEDS ORDERED: ALBUMIN 25% 200 ML IV ONE (14:30)
--- NOTE | 2018-12-26 16:17 | ASMTCMCOM ---
CM Note CM Note Notes: Spoke with pt in the room who goes by "Ute" and with RN. Pt has three children under age 18 in the home and a 19 year old. Pt given application for [facility] as she has chronic Sjogrens and is in and out of the hospital with autoimmune hepatitis. Pt also given brochure for [facility] and Rhonda notified of pt's admission and need for supportive services, including support enrolling pt's son in Medicaid. No therapies ordered at this time. Pt will likely discharge independently. CM will need to follow up on There with Care application tomorrow as pt was unable to fill it out today. CM to follow. D/C Plan: Independent with [facility], There with [facility] support. Date Signed: 12/26/2018 04:16 PM Electronically Signed By:Shyanne Harmon
[2018-12-26] MEDS: ONDANSETRON DISINTEGRATING 4 MG TAB PO PRN ×2 (19:55→23:20)
[2018-12-26] MEDS: ACETAMINOPHEN 325 MG TAB PO PRN (20:55)
[2018-12-27] MEDS: ONDANSETRON DISINTEGRATING 4 MG TAB PO PRN ×4 (05:03→21:49)
[2018-12-27] MEDS: LEVOTHYROXINE 200 MCG TAB PO SCH (05:03)
[2018-12-27] MEDS: oxyCODONE IR 5 MG TAB PO PRN ×4 (05:03→21:54)
[2018-12-27 05:33] LABS: PLATELET COUNT 50 10^3/uL (150-400)
[2018-12-27] MEDS: SIMETHICONE 80 MG TAB CHEW PO SCH ×4 (09:13→21:49)
[2018-12-27] MEDS: ACYCLOVIR 200 MG CAP PO SCH ×2 (09:13→21:49)
[2018-12-27] MEDS: FUROSEMIDE 40 MG TAB PO SCH ×2 (09:13→16:10)
[2018-12-27] MEDS: PANTOPRAZOLE SODIUM 40 MG TAB PO SCH (09:13)
[2018-12-27] MEDS: CHOLECALCIFEROL VIT D3 1,000 UNITS TAB PO SCH (09:13)
[2018-12-27] MEDS: MAGNESIUM OXIDE 400 MG TAB PO SCH (09:13)
[2018-12-27] MEDS: CEVIMELINE 30 MG PO SCH ×3 (09:14→21:49)
[2018-12-27] MEDS: Lisdexamfetamine Dimesylate [Vyvanse] 70 MG PO SCH (09:20)
[2018-12-27] MEDS: SPIRONOLACTONE 100 MG TAB PO SCH ×2 (09:25→16:10)
--- NOTE | 2018-12-27 15:00 | HOSPPROG ---
Hospitalist Progress Note Assessment/Plan: 48 yo F w/ cirrhosis presents with fever and abdominal pain possibly due to SBP. First encounter, chart reviewed. # likely SBP -Ceftriaxone D#4/5 (last dose tue) -ID not formally consulted but recommended Augmentin 500 mg po bid after completing Rocephin -pain due to this # autoimmune cirrhosis - off all immunosuppressants; followed by Dr Gonzalez at - c/d varices, synthetic dysfunction, thrombocytopenia - cont Lasix/Aldactone -will get daily weights -asked Karina to make an appt today w her doctor at [facility] f/u #hypotension -asymptomatic # Sjogren - home Evoxac # hypothyroid - Synthroid # ADHD - Vyvanse # DVT ppx - SCDs Subjective: Karina is upset, feels she doesn't know what is going on. Objective: Vital Signs Temp Pulse Resp BP Pulse Ox 36.9 C 85 18 94/63 L 90 L 12/27/18 11:28 12/27/18 11:28 12/27/18 11:28 12/27/18 11:28 12/27/18 11:28 Laboratory Results 12/27/18 04:40 12/27/18 04:40 12/26/18 12/27/18 12/28/18 05:59 05:59 05:59 Intake Total 880 930 Balance 880 930 PT 20.7 SEC (12.0-15.0) H 12/26/18 04:38 INR 1.88 (0.83-1.16) H 12/26/18 04:38 - Physical Exam Constitutional: chronically ill appearing, uncomfortable Eyes: PERRL Ears, Nose, Mouth, Throat: hearing normal Cardiovascular: regular rate and rhythym Respiratory: no respiratory distress Gastrointestinal: normoactive bowel sounds, tenderness, ascites Skin: warm Musculoskeletal: generalized weakness Neurologic: AAOx3 Psychiatric: interacting appropriately ICD10 Worksheet Patient Problems: Problems Problem Status Onset Fever Acute Liver disease Acute SBP (spontaneous bacterial peritonitis) Acute
--- NOTE | 2018-12-27 15:29 | ASMTCMCOM ---
CM Note CM Note Notes: Met with pt and finished the There with [facility] application. Application faxed to Judy in the [place] office, pt hopes to discharge or Tuesday, her parents are coming this weekend. DC Plan: Independent, There with Care, [facility] Date Signed: 12/27/2018 03:29 PM Electronically Signed By:Mari Calixto RN
[2018-12-28] MEDS: oxyCODONE IR 5 MG TAB PO PRN ×3 (02:03→11:30)
[2018-12-28] MEDS: ONDANSETRON DISINTEGRATING 4 MG TAB PO PRN ×3 (02:03→11:30)
[2018-12-28 05:20] LABS: PLATELET COUNT 57 10^3/uL (150-400)
[2018-12-28] MEDS: LEVOTHYROXINE 200 MCG TAB PO SCH (06:25)
[2018-12-28] MEDS ORDERED: AMOX/CLAVULANATE 500/125 MG TAB PO SCH (09:00)
[2018-12-28] MEDS: CHOLECALCIFEROL VIT D3 1,000 UNITS TAB PO SCH (09:15)
[2018-12-28] MEDS: FUROSEMIDE 40 MG TAB PO SCH (09:20)
[2018-12-28] MEDS: CEVIMELINE 30 MG PO SCH (09:20)
[2018-12-28] MEDS: MAGNESIUM OXIDE 400 MG TAB PO SCH (09:20)
[2018-12-28] MEDS: ACYCLOVIR 200 MG CAP PO SCH (09:20)
[2018-12-28] MEDS: PANTOPRAZOLE SODIUM 40 MG TAB PO SCH (09:20)
[2018-12-28] MEDS: SPIRONOLACTONE 100 MG TAB PO SCH (09:20)
[2018-12-28] MEDS: SIMETHICONE 80 MG TAB CHEW PO SCH ×2 (09:20→14:02)
[2018-12-28] MEDS: Lisdexamfetamine Dimesylate [Vyvanse] 70 MG PO SCH (09:21)
[2018-12-28 11:34] VITALS: BP 108/56
--- NOTE | 2018-12-28 12:56 | HOSPPROG ---
Hospitalist Progress Note Assessment/Plan: 48 yo F w/ cirrhosis presents with fever and abdominal pain possibly due to SBP. First encounter, chart reviewed. # likely SBP -ID not formally consulted but recommended Augmentin 500 mg po bid after completing Rocephin # autoimmune cirrhosis - off all immunosuppressants; followed by Dr Gonzalez at - c/d varices, synthetic dysfunction, thrombocytopenia - cont Lasix/Aldactone - MELD score 18 #hypotension -asymptomatic # Sjogren - home Evoxac # hypothyroid - Synthroid # ADHD - Vyvanse # DVT ppx - SCDs # plan: f/u appt tomorrow at [facility] Dr Gonzalez Subjective: Karina is feeling better, less abdominal pain. Objective: Vital Signs Temp Pulse Resp BP Pulse Ox 37.1 C 87 16 108/56 L 90 L 12/28/18 11:33 12/28/18 11:33 12/28/18 08:00 12/28/18 11:33 12/28/18 11:33 Laboratory Results 12/28/18 04:55 12/28/18 04:55 12/27/18 12/28/18 12/29/18 05:59 05:59 05:59 Intake Total 930 990 Balance 930 990 PT 20.7 SEC (12.0-15.0) H 12/26/18 04:38 INR 1.88 (0.83-1.16) H 12/26/18 04:38 - Physical Exam Constitutional: no apparent distress Eyes: PERRL, icteric sclera Ears, Nose, Mouth, Throat: hearing normal Gastrointestinal: ascites, hepatosplenomegally Skin: warm Musculoskeletal: full muscle strength Neurologic: AAOx3 Psychiatric: interacting appropriately ICD10 Worksheet Patient Problems: Problems Problem Status Onset Fever Acute Liver disease Acute SBP (spontaneous bacterial peritonitis) Acute
[2018-12-28] MEDS ORDERED: PNEUMOCOCCAL 0.5ML VACCINE VIAL (PNEUMOVAX 23) IM ONE (13:10)
--- NOTE | 2018-12-28 18:50 | GDS ---
[f rep st] DISCHARGE SUMMARY DISCHARGE DIAGNOSIS: 1. Likely spontaneous bacterial peritonitis. 2. Autoimmune cirrhosis. 3. Hypertension. 4. Sjogrens. 5. Hypothyroidism. 6. Attention deficit hyperactivity disorder. Briefly, Zora Pandey is a very nice 48-year-old female with cirrhosis who presented with fever and abdominal pain, possibly due to SBP. She is seen and treated by Dr. Srinivas Gonzalez at [facility] for cirrhosis. She is on prophylaxis Cipro for SBP. Today, she is feeling markedly better. She has an appointment with Dr. Gonzalez tomorrow and further followup with him. HOSPITAL COURSE: 1. Likely SBP, treated with IV antibiotics. She will be discharged home on Augmentin twice daily after completing Rocephin. 2. Autoimmune cirrhosis. She is off all immunosuppressants. She is followed by Dr. Gonzalez at . She has varices, synthetic dysfunction and persistent thrombocytopenia. Have continued her Lasix and Aldactone. Her MELD score is 18. 3. Hypotension. She is asymptomatic. 4. Sjorgren. She is on Evoxac. 5. Hypothyroidism, on Synthroid. 6. Attention deficit hyperactivity disorder. Well managed. DISCHARGE CONDITION: Stable. Blood pressure is 108/56, O2 sats on room air 90% , respiratory rate is 16, pulse is 87, temperature is 37.1 Celsius. MEDICATIONS AT DISCHARGE: Please see the EMR. DISCHARGE INSTRUCTIONS: 1. To follow up with Dr. Srinivas Gonzalez as scheduled tomorrow. To continue her home diuretics as ordered. 2. If she develops fever, chills, chest pain, or shortness of breath, return to the ER. Greater than 30 minutes reviewing care with the patient and further followup. Copy requested to: Srinivas Gonzalez M.D. [facility] /[id number]/MODL MTDD
--- NOTE | 2019-01-01 17:11 | PQFORM ---
PHYSICIAN QUERY FORM Needs Your Response This query form is being sent to you to assure this patient record is coded properly. Please respond to the question below: INVESTMENT FUND MANAGER QUESTION: Dear Dr. Huff, Sepsis was documented within Dr. Mayorga 12/24 Consultation and in the Hospitalist Progress notes dated 12/24-12/25. Patient presented to ER with Fever , elevated heart rate of 123, elevated respirator rate of 21, decreased blood pressure of 91/49 and lactic acidosis. Based on the clinical indicators and your professional judgement please clarify the status of "sepsis" by selecting one of the options below. ___x__The diagnosis of sepsis, present on admission was confirmed Sepsis was ruled out Other more appropriate diagnosis (please specify) Clinically unable to determine Thank you JOANNA Ulloa HIM/Coding Dept. INSTRUCTIONS FOR RESPONSE: Answer question by clicking on the "Edit Document" button. Move cursor to area below the stars. When complete, hit "Save." Click on the "Sign" button, then click "Sign" again. Type in your PIN and hit "Enter." MTDD
== END 2018-12-28 14:34 | disposition home or self-care (01) | DRG 720 ==
LOC: F2N 12-24 01:32 → OBSVTOIN 12-25 10:33 → F3E 12-25 14:01
PROVIDERS: ADMIT Student in an Organized Health Care Education/Training Program; ATTEND Student in an Organized Health Care Education/Training Program
DX: A41.9 Sepsis, unspecified organism (principal); K65.2 Spontaneous bacterial peritonitis; D69.6 Thrombocytopenia, unspecified; K74.69 Other cirrhosis of liver; K75.4 Autoimmune hepatitis; M35.00 Sjogren syndrome, unspecified; E86.9 Volume depletion, unspecified; I10 Essential (primary) hypertension; E03.9 Hypothyroidism, unspecified; F90.9 Attention-deficit hyperactivity disorder, unspecified type; Z23 Encounter for immunization; T36.8X6A Underdosing of other systemic antibiotics, initial encounter
CPT/HCPCS: 96365; G0009; G0378; J0696; J1170; J1200; J2405; J3430; P9035; P9047